=== PATIENT | male | born 1995 | race Two or more races ===

== ENCOUNTER 2020-05-05 21:36 | Emergency (ER) | payer OTHER ==
[2020-05-05 22:06] VITALS: BP 111/66; PULSE 95; TEMP 98.5; BMI 23.5
--- NOTE | 2020-05-05 22:43 | PDOC ---
History of Present Illness - General Chief Complaint: Substance Abuse Stated Complaint: DETOX Time Seen by Provider: 05/05/20 22:34 - History of Present Illness Initial Comments: HPI: 05/05/20 22:39 25 yo M PMH heroin use (last snorted today, never used IV or smoked), MDMA use (last 3 weeks ago) asthma (never intubated), "broken hand" (fixed by cast, 2009), inguinal hernia s/p repair (2014), tonsillectomy, requesting detox. Has no medical complaints. Allergies: penicillin ("throat closes, rash") ROS: GENERAL/CONSTITUTIONAL: denies fever, chills, diaphoresis, generalized weakness HEAD, EYES, EARS, NOSE AND THROAT: denies rhinorrhea, nasal congestion, throat pain, throat swelling NEUROLOGIC: denies headache, focal weakness, dizziness, unsteady gait, mental status changes CARDIOVASCULAR: denies chest pain, syncope, palpitations, irregular heart rate, lightheadedness, peripheral edema RESPIRATORY: denies cough, shortness of breath, dyspnea with exertion, wheezing GASTROINTESTINAL: denies abdominal pain, abdominal distension, nausea, vomiting, diarrhea, constipation, melena, hematochezia GENITOURINARY: denies dysuria, frequency, urgency, hesitancy, hematuria, flank pain, genital pain MUSCULOSKELETAL: denies myalgia, arthralgia, joint swelling, back pain, neck pain SKIN: denies rash, itching, pallor HEMATOLOGIC/IMMUNOLOGIC: denies easy bleeding, easy bruising, lymphadenopathy, frequent infections ENDOCRINE: denies unexplained weight gain, unexplained weight loss, heat intolerance, cold intolerance PSYCHIATRIC: denies anxiety, depression, suicidal or homicidal ideation, hallucinations PE: Gen: well-developed, well-nourished, NAD Neuro: AAOX4, CN II-XII grossly intact HEENT: atraumatic, normocephalic Neck: trachea midline, supple CV: regular rate, regular rhythm, no murmurs, rubs, or gallops Pulm: CTA b/l, no wheezing Abd: soft, non-distended, non-tender MSK: full ROM, intact pulses Extr: no edema, no deformities Skin: warm, dry MDM: Will call security to transport to [facility] for detox. Called and confirmed that they have beds available. Past History - Medical History Allergies/Adverse Reactions: Allergies Allergy/AdvReac Type Severity Reaction Status Date / Time Penicillins Allergy Severe Difficulty Verified 08/22/16 14:28 Breathing Home Medications: Ambulatory Orders Albuterol Sulfate Inhaler - [Ventolin Hfa Inhaler -] 2 inh PO Q4H PRN 08/25/15 Anemia: No Asthma: Yes (ON MEDS) Cancer: No Cardiac Disorders: No CVA: No COPD: No CHF: No Dementia: No Diabetes: No GI Disorders: No Disorders: No HTN: No Hypercholesterolemia: No Kidney Stones: No Liver Disease: No Seizures: No Thyroid Disease: No - Surgical History Abdominal Surgery: No Appendectomy: No Cardiac Surgery: No Cholecystectomy: No Lung Surgery: No Neurologic Surgery: No Orthopedic Surgery: No - Reproductive History Testicular Surgery: No - Psycho-Social/Smoking History Smoking History: Current every day smoker Have you smoked in the past 12 months: Yes Number of Cigarettes Smoked Daily: 20 Cigars Per Day: 0 Information on smoking cessation initiated: No 'Breaking Loose' booklet given: 08/22/16 - Substance Abuse Hx (Audit-C & DAST Scrn) How often the patient has a drink containing alcohol: Monthly or less Number of drinks the patient has on a typical day: 1 or 2 How often the patient has six or more drinks on one occasion: Less than monthly Score: In Men: 4 or > Positive; In Women: 3 or > Positive: 2 Screen Result (Pos requires Nsg. Audit-10AR): Negative In the last yr the pt used illegal drug/Rx for NonMed reason: Yes Score: Yes response is considered Positive: 1 Screen Result (Positive result requires Nsg. DAST-10): Positive *Physical Exam - Vital Signs Last Vital Signs Temp Pulse Resp BP Pulse Ox 98.5 F 95 H 19 111/66 97 05/05/20 22:03 05/05/20 22:03 05/05/20 22:03 05/05/20 22:03 05/05/20 22:03 Discharge - Discharge Information Problems reviewed: Yes Clinical Impression/Diagnosis: Heroin dependence, MDMA abuse Condition: Stable Disposition: HOME - Follow up/Referral - Patient Discharge Instructions Additional Instructions: You were seen requesting detox. You will be taken to [facility], our detox facility. - Post Discharge Activity
--- NOTE | 2020-05-05 22:46 | PDOC ---
Documentation entered by Maribell Moore SCRIBE, acting as scribe for Gina Mai DO. Gina Mai DO: This documentation has been prepared by the Oscar otero Xhesika, SCRIBE, under my direction and personally reviewed by me in its entirety. I confirm that the documentation accurately reflects all work, treatment, procedures, and medical decision making performed by me. Attending Attestation - Resident Resident Name: Divya Gao - ED Attending Attestation I have performed the following: I have examined & evaluated the patient, The case was reviewed & discussed with the resident, I agree w/resident's findings & plan, Exceptions are as noted - HPI HPI: 05/05/20 22:36 25y/o M with a pmh of polysubstance abuse, asthma, nguinal hernia s/p repair (2014), tonsillectomy who presents to the ED requesting detox. Pt states he last snorted heroine today and last used MDMA 3 weeks ago. Pt denies any SI or HI. Pt does not have any complaints in the ED but, is requesting detox. The patient denies chest pain, shortness of breath, headache and dizziness. Denies fever, chills, cough, nausea, vomiting. Allergies: Penicillins - Physicial Exam PE: 05/05/20 22:39 GENERAL: Awake, alert, and fully oriented, in no acute distress HEAD: No signs of trauma EYES: PERRLA, EOMI, sclera anicteric, conjunctiva clear ENT: Auricles normal inspection, hearing grossly normal, nares patent, oropharynx clear without exudates. Moist mucosa NECK: Normal ROM, supple, no lymphadenopathy, JVD, or masses LUNGS: Breath sounds equal, clear to auscultation bilaterally. No wheezes, and no crackles HEART: Regular rate and rhythm, normal S1 and S2, no murmurs, rubs or gallops ABDOMEN: Soft, nontender, normoactive bowel sounds. No guarding, no rebound. No masses EXTREMITIES: Normal range of motion, no edema. No clubbing or cyanosis. No cords, erythema, or tenderness NEUROLOGICAL: Cranial nerves II through XII grossly intact. Normal speech. Ambulatory with steady gait. SKIN: Warm, Dry, normal turgor, no rashes lesions noted. - Medical Decision Making 05/05/20 22:43 a/p: 25yo male who states he snorts heroin, last use today, and uses MDMA - last use 3 weeks ago -no somatic complaints -requesting detox -beds available -resident called [facility], will send with security to [facility] -denies SI/Hi -pt aaox3, nad -ambulatory with a steady gait Discharge - Discharge Information Problems reviewed: Yes Clinical Impression/Diagnosis: Heroin dependence, MDMA abuse Condition: Stable Disposition: HOME - Admission No - Follow up/Referral - Patient Discharge Instructions - Post Discharge Activity
== END 2020-05-05 23:02 | disposition home or self-care (01) ==
LOC: JER 21:36
DX: F11.10 Opioid abuse, uncomplicated (principal); F16.10 Hallucinogen abuse, uncomplicated
CPT/HCPCS: 99282-25

== ENCOUNTER 2020-05-05 23:28 | Inpatient (IN) | payer OTHER ==
[2020-05-05 23:52] VITALS: BMI 27.2
--- NOTE | 2020-05-06 00:47 | HP ---
COWS - Scale Resting Pulse: 0= [place] 80 or Below Sweatin= Chills/Flushing Restless Observation: 0= Sits Still Pupil Size: 0= Normal to Room Light Bone or Joint Aches: 2= Severe Diffuse Aches Runny Nose/ Eye Tearin= Runny Nose/Eyes GI Upset > 30mins: 2= Nausea/Diarrhea (diarrhea x 2) Tremor Observation: 2= Slight Tremor Visible Yawning Observation: 1= 1-2x During Session Anxiety or Irritability: 4=Extreme Anxiety Goose Flesh Skin: 0=Smooth Skin COWS Score: 14 CIWA Score - Admission Criteria OASAS Guidelines: Admission for Medically Managed Detox: Requires at least one of the followin. CIWA greater than 12 2. Seizures within the past 24 hours 3. Delirium tremens within the past 24 hours 4. Hallucinations within the past 24 hours 5. Acute intervention needed for co occurring medical disorder 6. Acute intervention needed for co occurring psychiatric disorder 7. Severe withdrawal that cannot be handled at a lower level of care (continued vomiting, continued diarrhea, abnormal vital signs) requiring intravenous medication and/or fluids 8. Admitting History and Physical - Smoking History Smoking history: Current every day smoker Have you smoked in the past 12 months: Yes Aproximately how many cigarettes per day: 20 - Alcohol/Substance Use Hx Alcohol Use: Yes Admission ROS [facility] Chief Complaint: Seeking admission to detox from Heroin Allergies/Adverse Reactions: Allergies Allergy/AdvReac Type Severity Reaction Status Date / Time Penicillins Allergy Severe Difficulty Verified 08/22/16 14:28 Breathing History of Present Illness: 25 years old male with 10 years of heroin dependence is seeking admission to detox. His last admission was for the period 08/22/2016- 08/26/2016 and he reports that he relapsed in 2018. He reports use of 5 bags of heroin daily. He has medical history of asthma and psych. history of bipolar disorder and dep ression. He reports suicide attempt at age 13, 15 and denies suicidal ideation at this time. He is unemployed, lives with his mother and denies legal issues. He reports blackouts and overdose ( last overdose was on 05/03/2020) and he was treated at [facility]. Exam Limitations: No Limitations - Ebola screening Have you traveled outside of the country in the last 21 days: No Have you had contact with anyone from an Ebola affected area: No Have you been sick,other than usual withdrawal symptoms: No Do you have a fever: No - Review of Systems Constitutional: Chills, Malaise, Night Sweats, Changes in sleep EENT: reports: No Symptoms Reported Respiratory: reports: No Symptoms reported Cardiac: reports: No Symptoms Reported GI: reports: Diarrhea (x 2), Nausea, Poor Appetite, Poor Fluid Intake : reports: No Symptoms Reported Musculoskeletal: reports: No Symptoms Reported Integumentary: reports: Dryness, Flushing Neuro: reports: Headache, Tremors Endocrine: reports: No Symptoms Reported Hematology: reports: No Symptoms Reported Psychiatric: reports: Mood/Affect Appropiate, Anxious, Depressed Other Systems: Reviewed and Negative Patient History - Patient Medical History Hx Anemia: No Hx Asthma: Yes (Albuterol) Hx Chronic Obstructive Pulmonary Disease (COPD): No Hx Cancer: No Hx Cardiac Disorders: No Hx Congestive Heart Failure: No Hx Hypertension: No Hx Hypercholesterolemia: No Hx Pacemaker: No HX Cerebrovascular Accident: No Hx Seizures: No Hx Dementia: No Hx Diabetes: No Hx Gastrointestinal Disorders: No Hx Liver Disease: No Hx Genitourinary Disorders: No Hx Sexually Transmitted Disorders: No Hx Renal Disease (ESRD): No Hx Thyroid Disease: No Hx Human Immunodeficiency Virus (HIV): No (Negative 2020) Hx Hepatitis C: No Hx Depression: Yes (Not on medication) Hx Suicide Attempt: Yes (Attempt at age 13 & 15, denies suicidal ideation at this time) Hx Bipolar Disorder: Yes (NOT ON MEDS) Hx Schizophrenia: No - Patient Surgical History Past Surgical History: Yes Hx Neurologic Surgery: No Hx Cataract Extraction: No Hx Cardiac Surgery: No Hx Lung Surgery: No Hx Abdominal Surgery: No Hx Appendectomy: No Hx Cholecystectomy: No Hx Genitourinary Surgery: No Hx Orthopedic Surgery: No Hx Hysterectomy: No Other Surgical History: R inguinal hernia repair 05/26, tonsillectomy at age of 64 years old Anesthesia Reaction: No - PPD History Previous Implant?: Yes Documented Results: Negative w/proof Implanted On Prior [facility] Admission?: Yes Date: 08/24/16 PPD to be Administered?: Yes - Reproductive History Patient is a Female of Child Bearing Age (11 -55 yrs old): No (Male) - Smoking Cessation Smoking history: Current every day smoker Have you smoked in the past 12 months: Yes Aproximately how many cigarettes per day: 10 Cigars Per Day: 0 Hx Chewing Tobacco Use: No Initiated information on smoking cessation: Yes 'Breaking Loose' booklet given: 05/06/20 - Substance & Tx. History Hx Alcohol Use: Yes Hx Substance Use: Yes Substance Use Type: Heroin, Marijuana Hx Substance Use Treatment: Yes - Substances abused Heroin Substance route: Inhalation Frequency: Daily Amount used: 5 bags Age of first use: 14 Date of last use: 05/05/20 Admission Physical Exam [facility] - Vital Signs Vital Signs: Vital Signs - 24 hr 05/05/20 23:51 Temperature 97.7 F Pulse Rate 68 Respiratory 18 Rate Blood Pressure 114/72 - Physical General Appearance: Yes: Moderate Distress, Tremorous, Sweating, Anxious HEENTM: Yes: Within Normal Limits Respiratory: Yes: Lungs Clear, Normal Breath Sounds, No Respiratory Distress Neck: Yes: Within Normal Limits Breast: Yes: Breast Exam Deferred Cardiology: Yes: Regular Rhythm, Regular Rate Abdominal: Yes: Within Normal Limits Genitourinary: Yes: Within Normal Limits Back: Yes: Normal Inspection Musculoskeletal: Yes: Within Normal Limits Extremities: Yes: Tremors Neurological: Yes: Within Normal Limits Integumentary: Yes: Warm Lymphatic: Yes: Within Normal Limits - Diagnostic (1) Cannabis dependence Current Visit: Yes Status: Chronic (2) Opioid dependence with withdrawal Current Visit: Yes Status: Acute (3) Asthma Current Visit: Yes Status: Chronic Qualifiers: Asthma severity: mild Asthma persistence: intermittent (4) Nicotine dependence Current Visit: Yes Status: Chronic Qualifiers: Nicotine product type: cigarettes Substance use status: uncomplicated Qualified Code(s): F17.210 - Nicotine dependence, cigarettes, uncomplicated Cleared for Admission [facility] - Detox or Rehab [facility] Level of Care: Medically Managed Detox Regimen/Protocol: Methadone Claeared for Rehab Admission: No Breathalyzer - Breathalyzer Breathalyzer: 0 Urine Drug Screen - Test Device Lot number: [id number] Expiration date: 03/15/22 - Control Is test valid?: Yes - Results Drug screen NEGATIVE: No Urine drug screen results: THC-Marijuana, FEN-Fentanyl, MOP-Opiates Inpatient Rehab Admission - Rehab Decision to Admit Inpatient rehab admission?: No
[2020-05-06] MEDS ORDERED: IBUPROFEN 400 MG TABLET (FP) PO PRN (01:01)
[2020-05-06] MEDS ORDERED: MAGNESIUM CITRATE 300 ML BOTTLE PO PRN (01:01)
[2020-05-06] MEDS ORDERED: MAGNESIUM HYDROX 2400MG/30ML ORAL SUSPENSION 30 ML CUP PO PRN (01:01)
[2020-05-06] MEDS ORDERED: METHADONE HCL 10 MG TABLET (FOR DETOX USE ONLY) PO ONE (01:01)
[2020-05-06] MEDS ORDERED: MAG HYDROX/AL HYDROX/SIMETH 30 ML UNIT-DOSE CUP PO PRN (01:01)
[2020-05-06] MEDS ORDERED: cloNIDine HCL 0.1 MG TABLET PO PRN (01:01)
[2020-05-06] MEDS ORDERED: ONDANSETRON *ODT* 4 MG TABLET SL PRN (01:01)
[2020-05-06] MEDS ORDERED: MENTHOL/PHENOL 1 EACH UD MM PRN (01:01)
[2020-05-06] MEDS ORDERED: NICOTINE POLACRILEX 2 MG GUM BUC PRN (01:01)
[2020-05-06] MEDS ORDERED: ACETAMINOPHEN 325 MG TABLET (FP) PO PRN ×2 (01:01)
[2020-05-06] MEDS ORDERED: BISMUTH SUBSALICYLATE 524 MG/30 ML UD PO PRN (01:01)
[2020-05-06] MEDS ORDERED: ALBUTEROL SO4 HFA INHALER IH PRN (01:05)
[2020-05-06] MEDS ORDERED: TUBERCULIN PPD 5 TU/0.1ML VIAL ID ONE (06:31)
[2020-05-06] MEDS ORDERED: MASKS NR ONE (06:51)
--- NOTE | 2020-05-06 08:47 | PN ---
[facility] COWS - Scale Resting Pulse: 0= [place] 80 or Below Sweatin= No chills or Flushing Restless Observation: 0= Sits Still Pupil Size: 1= Pupils >than Normal Bone or Joint Aches: 2= Severe Diffuse Aches Runny Nose/ Eye Tearin= Runny Nose/Eyes GI Upset > 30mins: 2= Nausea/Diarrhea Tremor Observation of Outstretched Hands: 2= Slight Tremor Visible Yawning Observation: 1= 1-2x During Session Anxiety or Irritability: 2=Irritable/Anxious Goose Flesh Skin: 0=Smooth Skin COWS Score: 12 [facility] Progress Note (SOAP) Subjective: alert,irritable,anxious,interrupted sleep,pain in the body and back,nausea Objective: 05/06/20 14:24 Vital Signs Temperature 98.2 F 05/06/20 08:57 Pulse Rate 60 05/06/20 08:57 Respiratory Rate 18 05/06/20 08:57 Blood Pressure 122/62 05/06/20 08:57 O2 Sat by Pulse Oximetry (%) 99 05/06/20 06:25 labs pending Assessment: 05/06/20 14:26 withdrawal symptom,to give methadone 15 mgs and valium 10 mgs po q 4 hrs prn for severe withdrawal for 72 hrs
[2020-05-06] MEDS: METHOCARBAMOL 500 MG TABLET PO PRN (10:14)
[2020-05-06] MEDS: PRENATAL VITAMINS W/ FOLIC ACID TABLET (FP) PO SCH (10:14)
[2020-05-06] MEDS: hydrOXYzine PAMOATE 25 MG CAPSULE (FP) PO PRN (10:14)
[2020-05-06] MEDS: NICOTINE 14 MG/24 HOURS TOPICAL PATCH TD SCH (10:16)
--- NOTE | 2020-05-06 10:31 | EKG ---
Test Reason : Blood Pressure : / mmHG Vent. Rate : 058 BPM Atrial Rate : 058 BPM P-R Int : 130 ms QRS Dur : 100 ms QT Int : 420 ms P-R-T Axes : 004 084 061 degrees QTc Int : 412 ms SINUS BRADYCARDIA MINIMAL VOLTAGE CRITERIA FOR LVH, MAY BE NORMAL VARIANT EARLY REPOLARIZATION WHEN COMPARED WITH ECG OF 22-AUG-2016 16:07, NO SIGNIFICANT CHANGE WAS FOUND Confirmed by SUE WELLER MD ([id number]) on 05/06/2020 10:30:44 AM Referred By: BENJAMIN Confirmed By:SUE WELLER MD
[2020-05-06] MEDS ORDERED: METHADONE HCL 5 MG TABLET (FOR DETOX USE ONLY) PO ONE (12:00)
--- NOTE | 2020-05-06 12:42 | CONSULT ---
[facility] Psychiatric Consult - Data Date of interview: 05/06/20 Admission source: [facility] Identifying data: Revisit to [facility] and admission to [address] [place] [address] for this 25 y/o male self-referred for detoxification treatment. TONI issues : opioid, alcohol, cocaine, cannabis, nicotine. 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 Substance Abuse History: Discussed with the patient. TONI profile as follows : Smoking history: Current every day smoker. Have you smoked in the past 12 months: Yes. Approximately how many cigarettes per day: 10. Cigars Per Day: 0. Hx Chewing Tobacco Use: No. Initiated information on smoking cessation: Yes. 'Breaking Loose' booklet given: 05/06/20. - Substance & Tx. History. Hx Alcohol Use: Yes. Hx Substance Use: Yes. Substance Use Type: Heroin, Marijuana. Hx Substance Use Treatment: Yes. - Substances abused. Heroin. Substance route: Inhalation. Frequency: Daily. Amount used: 5 bags. Age of first use: 14. Date of last use: 05/05/20. Known history of multiple TONI treatment failures. Medical History: Remarkable for bronchial asthma and history of tonsillectomy + right inguinal herniorraphy. Psychiatric History: Patient denies history of psychiatric hospitalizations. He admits to a brief contact with a private psychiatrist, in 2014, who diagnosed him with Anxiety Disorder and prescribed him clonazepam. Mr Cortes reports that he has dropped out of treatment since 2014. Kept no contact with [employer] care providers. Patient endorses a remote history (age 13 + 15) of suicide attempts via self-mutilation (wrist-cutting). Physical/Sexual Abuse/Trauma History: Patient denies history of abuse. Additional Comment: Urine drug screen results: THC-Marijuana, FEN-Fentanyl, MOP- Opiates. Noted. Mental Status Exam - Mental Status Exam Alert and Oriented to: Time, Place, Person Cognitive Function: Good Patient Appearance: Well Groomed (muscular built, short stature; tattoos on both upper extremities) Mood: Hopeful, Euthymic Affect: Appropriate, Normal Range Patient Behavior: Fatigued, Appropriate, Cooperative Speech Pattern: Clear, Appropriate Voice Loudness: Normal Thought Process: Intact, Goal Oriented Thought Disorder: Not Present Hallucinations: Denies Suicidal Ideation: Denies Homicidal Ideation: Denies Insight/Judgement: Poor Sleep: Well Appetite: Good Gait/Station: Normal Psychiatric Findings - Problem List (Gilbert 1, 2,3) (1) Opioid dependence with withdrawal Status: Acute (2) Cannabis dependence Status: Chronic (3) Nicotine dependence Status: Chronic Qualifiers: Nicotine product type: cigarettes Substance use status: uncomplicated Qualified Code(s): F17.210 - Nicotine dependence, cigarettes, uncomplicated - Initial Treatment Plan Initial Treatment Plan: Psychoeducation + motivational counseling provided in this session. Support. MAT intervention (option of opioid agonist therapy) revisited with the patient : expresses no interest. Sleep hygiene. D etoxification in progress. Observation.
[2020-05-06] MEDS ORDERED: diazePAM 5 MG TABLET PO PRN (14:27)
[2020-05-06] MEDS ORDERED: MELATONIN 5 MG TABLETS PO SCH (22:00)
[2020-05-06] MEDS ORDERED: THIAMINE HCL 100 MG TABLET (FP) PO SCH (22:00)
[2020-05-07] MEDS ORDERED: METHADONE (DETOX) 20 MG, METHADONE (DETOX) 5 MG PO ONE (10:00)
[2020-05-07] MEDS ORDERED: METHADONE HCL 10 MG TABLET (FOR DETOX USE ONLY) ONE (10:16)
[2020-05-07] MEDS ORDERED: METHADONE HCL 5 MG TABLET (FOR DETOX USE ONLY) ONE (10:16)
[2020-05-07] MEDS: METHOCARBAMOL 500 MG TABLET PO PRN (10:58)
[2020-05-07] MEDS: PRENATAL VITAMINS W/ FOLIC ACID TABLET (FP) PO SCH (10:59)
[2020-05-07] MEDS: NICOTINE 14 MG/24 HOURS TOPICAL PATCH TD SCH (10:59)
[2020-05-07] MEDS: hydrOXYzine PAMOATE 25 MG CAPSULE (FP) PO PRN (11:01)
--- NOTE | 2020-05-07 11:11 | PN ---
[facility] COWS - Scale Resting Pulse: 0= [place] 80 or Below Sweatin= Beads of Sweat on Face Restless Observation: 1= Difficult to Sit Still Pupil Size: 0= Normal to Room Light Bone or Joint Aches: 2= Severe Diffuse Aches Runny Nose/ Eye Tearin= None GI Upset > 30mins: 0= None Tremor Observation of Outstretched Hands: 0= None Yawning Observation: 2= >3x During Session Anxiety or Irritability: 2=Irritable/Anxious Goose Flesh Skin: 0=Smooth Skin COWS Score: 10 [facility] Progress Note (SOAP) Subjective: c/o sweats, anxiety, irritability, and muscle aches. Objective: 05/07/20 11:24 Vital Signs 05/07/20 05/07/20 06:19 09:20 Temperature 98.2 F 97.5 F L Pulse Rate 58 L 58 L Respiratory 18 18 Rate Blood Pressure 114/77 133/78 O2 Sat by Pulse 98 Oximetry (%) Labs pending. Assessment: 05/07/20 11:25 AOX3, in no acute respiratory distress. Full ROM, ambulating in the unit. Withdrawal symptoms. Plan: continue detox.
[2020-05-07 11:53] LABS: HEMATOCRIT 46.3 % (35.4-49); HEMOGLOBIN 15.2 GM/dL (11.7-16.9); MCH 28.7 pg (25.7-33.7); MCHC 32.9 g/dl (32.0-35.9); MEAN CELL VOLUME 87.3 fl (80-96); MEAN PLT VOLUME 8.4 fl (7.5-11.1); PLATELET COUNT 214 K/MM3 (134-434); RDW 13.5 % (11.9-15.9); WHITE BLOOD COUNT 6.5 K/mm3 (4.0-10.0)
[2020-05-07 12:03] LABS: ALBUMIN 3.7 g/dl (3.4-5.0); BILIRUBIN,TOTAL 0.7 mg/dL (0.2-1); CALCIUM 8.9 mg/dL (8.5-10.1); CREATININE 0.7 mg/dL (0.55-1.3); POTASSIUM 4.2 mmol/L (3.5-5.1); TOT PROT 6.5 g/dl (6.4-8.2)
--- NOTE | 2020-05-07 13:27 | DS ---
[facility] Detox Discharge Summary Admission Date: 05/06/20 Discharge Date: 05/07/20 (Pt left AMA) - History Present History: Cannabis Dependence, Opioid Dependence Additional Comments: As per H&P: "25 years old male with 10 years of heroin dependence is seeking admission to detox. His last admission was for the period 08/22/2016- 08/26/2016 and he reports that he relapsed in 2018. He reports use of 5 bags of heroin daily. He has medical history of asthma and psych. history of bipolar disorder and depression. He reports suicide attempt at age 13, 15 and denies suicidal ideation at this time. He is unemployed, lives with his mother and denies legal issues. He reports blackouts and overdose ( last overdose was on 05/03/2020) and he was treated at [facility]". Pt left AMA. Pt did not complete the detox protocol. As per counselor's notes, pt approached her and stated "i just want to leave, no disrespect but I don't want to hear what you have to stay." Pt. left AMA and refused counseling to remain in treatment". This rfp writer is unable to assess pt before he left due to pt's uncooperativeness. Pertinent Past History: h/o heroin and cannabis use disorder. - Physical Exam Results Vital Signs: Vital Signs Temperature 97.5 F L 05/07/20 09:20 Pulse Rate 58 L 05/07/20 09:20 Respiratory Rate 18 05/07/20 09:20 Blood Pressure 133/78 05/07/20 09:20 O2 Sat by Pulse Oximetry (%) 98 05/07/20 06:19 Vital Signs 05/07/20 05/07/20 06:19 09:20 Temperature 98.2 F 97.5 F L Pulse Rate 58 L 58 L Respiratory 18 18 Rate Blood Pressure 114/77 133/78 O2 Sat by Pulse 98 Oximetry (%) Laboratory Last Values WBC 6.5 K/mm3 (4.0-10.0) 05/07/20 07:50 RBC 5.30 M/mm3 (4.00-5.60) 05/07/20 07:50 Hgb 15.2 GM/dL (11.7-16.9) 05/07/20 07:50 Hct 46.3 % (35.4-49) 05/07/20 07:50 MCV 87.3 fl (80-96) 05/07/20 07:50 MCH 28.7 pg (25.7-33.7) 05/07/20 07:50 MCHC 32.9 g/dl (32.0-35.9) 05/07/20 07:50 RDW 13.5 % (11.9-15.9) 05/07/20 07:50 Plt Count 214 K/MM3 (134-434) 05/07/20 07:50 MPV 8.4 fl (7.5-11.1) 05/07/20 07:50 Sodium 140 mmol/L (136-145) 05/07/20 07:50 Potassium 4.2 mmol/L (3.5-5.1) 05/07/20 07:50 Chloride 104 mmol/L (98-107) 05/07/20 07:50 Carbon Dioxide 33 mmol/L (21-32) H 05/07/20 07:50 Anion Gap 3 MMOL/L (8-16) L 05/07/20 07:50 BUN 10.0 mg/dL (7-18) 05/07/20 07:50 Creatinine 0.7 mg/dL (0.55-1.3) 05/07/20 07:50 Est GFR (CKD-EPI)AfAm 149.90 05/07/20 07:50 Est GFR (CKD-EPI)NonAf 129.33 05/07/20 07:50 Random Glucose 76 mg/dL (74-106) 05/07/20 07:50 Calcium 8.9 mg/dL (8.5-10.1) 05/07/20 07:50 Total Bilirubin 0.7 mg/dL (0.2-1) 05/07/20 07:50 AST 14 U/L (15-37) L 05/07/20 07:50 ALT 20 U/L (13-61) 05/07/20 07:50 Alkaline Phosphatase 49 U/L (45-117) 05/07/20 07:50 Total Protein 6.5 g/dl (6.4-8.2) 05/07/20 07:50 Albumin 3.7 g/dl (3.4-5.0) 05/07/20 07:50 Syphilis Serology Non-reactive (NONREACTIVE) 05/07/20 07:50 COVID-19 (ASUNCION) Not detected (Not Detected) 05/06/20 08:00 Labs noted. Pertinent Admission Physical Exam Findings: withdrawal symptoms. - Treatment Hospital Course: Detox Protocol Followed - Medication Discharge Medications: Ambulatory Orders Albuterol Sulfate Inhaler - [Ventolin Hfa Inhaler -] 2 inh PO Q4H PRN 08/25/15 - Diagnosis (1) Opioid dependence with withdrawal Current Visit: Yes Status: Acute (2) Asthma Current Visit: Yes Status: Chronic Qualifiers: Asthma severity: mild Asthma persistence: intermittent (3) Cannabis dependence Current Visit: Yes Status: Chronic (4) Nicotine dependence Current Visit: Yes Status: Chronic Qualifiers: Nicotine product type: cigarettes Substance use status: uncomplicated Qualified Code(s): F17.210 - Nicotine dependence, cigarettes, uncomplicated (5) Heroin dependence Current Visit: No Status: Chronic - AMA Did Patient Leave Against Medical Advice: Yes
[2020-05-07 13:42] VITALS: BP 148/87; PULSE 85; TEMP 97.3
[2020-05-08] MEDS ORDERED: METHADONE HCL 10 MG TABLET (FOR DETOX USE ONLY) PO ONE (10:00)
[2020-05-09] MEDS ORDERED: METHADONE (DETOX) 10 MG, METHADONE (DETOX) 5 MG PO ONE (10:00)
[2020-05-10] MEDS ORDERED: METHADONE HCL 10 MG TABLET (FOR DETOX USE ONLY) PO ONE (10:00)
[2020-05-11] MEDS ORDERED: METHADONE HCL 5 MG TABLET (FOR DETOX USE ONLY) PO ONE (06:00)
== END 2020-05-07 12:40 | disposition left against medical advice (07) | DRG 770 ==
LOC: YASAS 23:28 → Y3N 05-06 01:07
PROVIDERS: ADMIT Allergy & Immunology; ATTEND Allergy & Immunology
PROC: HZ2ZZZZ Detoxification Services for Substance Abuse Treatment (ICD-10-PCS; principal; 2020-05-06)
DX: F11.23 Opioid dependence with withdrawal (principal); F12.20 Cannabis dependence, uncomplicated; F17.210 Nicotine dependence, cigarettes, uncomplicated; F31.9 Bipolar disorder, unspecified; J45.20 Mild intermittent asthma, uncomplicated; Z91.5 Personal history of self-harm; Z88.0 Allergy status to penicillin; Z98.890 Other specified postprocedural states; Z56.0 Unemployment, unspecified
CPT/HCPCS: 36415; 80053; 85027; 86780; 93005; 93010; U0003